=== PATIENT | female | born 2000 | race Caucasian/White ===

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

== ENCOUNTER → 2019-10-07 | Outpatient (CLI) | payer BC | LOC: LABNPT 06:40 | PROVIDERS: ATTEND Family Medicine | DX: J02.9 Acute pharyngitis, unspecified (principal); R51 Headache; Z20.828 Contact with and (suspected) exposure to other viral communicable diseases | CPT/HCPCS: 87635 ==

== ENCOUNTER 2019-10-28 08:47 | Outpatient (RCR) | payer BC | END 2019-10-28 10:29 | disposition home or self-care (01) | DX: M53.3 Sacrococcygeal disorders, not elsewhere classified (principal) ==